=== PATIENT | male | born 1960 | race Two or more races ===

== ENCOUNTER 2024-01-12 14:45 | Emergency (ER) | payer OTHER ==
[~2024-01-12] VITALS: Ht 165.1 cm; Wt 72.6 kg
[2024-01-12] MEDS ORDERED: COZAAR25 MG (15:08)
[2024-01-12] MEDS ORDERED: KAPSPARGO SPRIN25 MG (15:08)
[2024-01-12 17:13] LABS: HEMATOCRIT 42.4 % (39.0-48.0); MEAN CORPUSCULAR HGB CONC 35.4 g/dl (32.0-36.0); PLATELET COUNT 272 K/uL (150-450); RED BLOOD COUNT 4.56 M/uL (4.00-6.00); RED CELL DISTRIBUTION WIDTH 12.8 % (11.5-14.5)
[2024-01-12 17:31] LABS: CREATININE SERUM 1.84 mg/dL (0.70-1.30); GFR 37.22; POTASSIUM 3.62 mEq/L (3.5-5.1)
== END 2024-01-12 18:46 | disposition home or self-care (01) ==
LOC: ER 14:47
PROVIDERS: General Practice
DX: R20.2 Paresthesia of skin (principal); I10 Essential (primary) hypertension; Z91.013 Allergy to seafood